=== PATIENT | female | born 2000 | race Caucasian/White ===

== ENCOUNTER → 2022-01-07 | Outpatient (CLI) | payer BC ==
--- NOTE | 2022-01-07 13:43 | Diagnostic Imaging Report ---
INDICATION: Bilateral breast pain and fullness. COMPARISON: No prior mammograms are available for comparison. 2-D and 3-D bilateral diagnostic mammography was performed with CAD. Scattered fibroglandular densities are noted bilaterally. No mass or malignant-appearing microcalcifications are seen. Axillae are unremarkable. IMPRESSION: BI-RADS Category 1 No mammographic features suspicious for malignancy are identified. ACR BI-RADS Category 1: Negative. Result letter will be mailed to the patient. Note: At least 10% of breast cancer is not imaged by mammography. Dictated by: Dictated on workstation # [id number]
== END ==
LOC: RAD 13:15
PROVIDERS: ATTEND Nurse Practitioner Family
DX: N64.4 Mastodynia (principal)
CPT/HCPCS: 77066; G0279; 77062

== ENCOUNTER → 2022-01-27 | Outpatient (CLI) | payer BC ==
[~2022-01-27] MED LIST: ONDA4TAB11 PO; TMSL.4C PO
--- NOTE | 2022-01-27 17:11 | Diagnostic Imaging Report ---
INDICATION: Upper back pain after injury. AP and lateral views of thoracic spine are obtained. Thoracic spinal curvature and alignment are unremarkable. Vertebral body heights and disc spaces are maintained. There is no lytic or sclerotic lesion. IMPRESSION: No acute abnormality. Dictated by: Dictated on workstation # [id number]
== END ==
LOC: RAD 16:13
PROVIDERS: ATTEND Family Medicine
DX: Q79.60 Ehlers-Danlos syndrome, unspecified (principal)
CPT/HCPCS: 72070

== ENCOUNTER 2022-01-30 09:43 | Emergency (ER) | payer BC ==
[~2022-01-30] VITALS: Ht 165 cm; Wt 113.3 kg
[2022-01-30] MEDS ORDERED: KETOROLAC 30 MG/ML VIAL IVP ONE (10:00)
[2022-01-30] MEDS ORDERED: ONDANSETRON 4 MG/2 ML (SDV) Z0FRAN IVP ONE (10:00)
[2022-01-30] MEDS ORDERED: fentaNYL INJ 100 MCG/2 ML AMP IVP ONE (10:00)
[2022-01-30] MEDS ORDERED: NS IV 1000 ML 1,000 ML IV SCH (10:00)
--- NOTE | 2022-01-30 10:01 | ED Abdominal Pain ---
General Chief Complaint: Back Problems Stated Complaint: BACK PAIN, L SIDE BURNING Nursing Triage Note: pt presents to ed via pov from home with complaints of mid/lower back pain that radiate to her l side after getting her back adjusted at urgent care 2 days ago. pt reports she woke up around 0900 with severe burning sensation on medial l side. Source of Information: Patient Exam Limitations: No Limitations History of Present Illness Date Seen by Provider: Jan 30, 2022 Time Seen by Provider: 09:50 Initial Comments Patient is a 21-year-old female who presents to the emergency department today with a chief complaint of left lower quadrant and left flank burning pain. 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 She states the pain radiates from her left low back around her left abdomen and down into her left anterior thigh and a little bit into her groin. She has never had any pain like this before. Nothing makes it any better or any worse. She denies fevers or chills. She is nauseous. No dysuria, urgency or frequency. She is on day 3 or 4 of her menstrual cycle. No abnormal vaginal discharge. No rashes reported. No diarrhea, black or bloody stools. 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 She states at the time of onset of her pain both of her arms went numb. She went to urgent care [facility] and was evaluated by Dr. Howard. She reports that he was not familiar with the condition of Dino-Danlos syndrome. She felt like he was not concerned that her back pain was related to her syndrome. She states that he examined her put her into various uncomfortable positions and then he pushed on her back. She states they both heard a loud pop and her pain and numbness improved. She has never had a dislocation in her back before that she is aware of. She is quite concerned that the mid back pain and this left lower abdominal pain are related. All other review of systems reviewed and negative except as stated Timing/Duration: 1-3 Hours Severity/Quality: Severe, Aching, Burning Location: LLQ Radiation: Groin, Other (left thigh) Modifying Factors: Worsens With Movement Associated Symptoms: Nausea/Vomiting Allergies and Home Medications Allergies Coded Allergies: Penicillins (Verified Allergy, Unknown, 01/30/22) Patient Home Medication List Home Medication List Reviewed: Yes Ondansetron (Ondansetron Odt) 4 Mg Tab.rapdis, 4 MG PO Q8H PRN for nausea Prescribed by: ANNA RODRIGUEZ on 01/30/22 1115 Tamsulosin HCl (Flomax) 0.4 Mg Cap, 0.4 MG PO HS Prescribed by: ANNA RODRIGUEZ on 01/30/22 1115 Review of Systems Review of Systems Constitutional: see HPI, diaphoresis EENTM: No Symptoms Reported Respiratory: No Symptoms Reported Cardiovascular: No Symptoms Reported Gastrointestinal: Abdominal Pain, Nausea Genitourinary: No Symptoms Reported Musculoskeletal: back pain Skin: no symptoms reported Psychiatric/Neurological: No Symptoms Reported; Denies Numbness, Denies Paresthesia All Other Systems Reviewed Negative Unless Noted: Yes Past Svqkach-Acfrtm-Litapf Hx Patient Social History Tobacco Use?: No Substance use?: No Alcohol Use?: Yes Alcohol Frequency: Once in a while Pt feels they are or have been: No Physical Exam Vital Signs Vital Signs - First Documented 01/30/22 09:51 Temp 36.2 Pulse 127 Resp 26 B/P (MAP) 151/108 (122) Pulse Ox 96 Capillary Refill : Less Than 3 Seconds Height/Weight/BMI Height: '" Weight: lbs. oz. kg; 41.00 BMI Method: General Appearance: WD/WN, moderate distress HEENT: PERRL/EOMI Neck: normal inspection Respiratory: lungs clear, normal breath sounds, no respiratory distress, no accessory muscle use Cardiovascular: regular rate, rhythm, tachycardia (120) Gastrointestinal: normal bowel sounds, soft, tenderness (left flank) Extremities: normal range of motion, normal inspection, normal capillary refill Back: normal inspection, other (neg SLR bilaterally; no LE weakness, paresthesia; normal distal pulses) Neurologic/Psychiatric: no motor/sensory deficits, alert, normal mood/affect, oriented x 3 Skin: normal color, warm/dry, other (no rashes to the left flank) Progress/Results/Core Measures Results/Orders Lab Results Laboratory Tests Test 01/30/22 10:23 01/30/22 10:40 Range/Units White Blood Count 9.8 4.3-11.0 10^3/uL Red Blood Count 4.80 3.80-5.11 10^6/uL Hemoglobin 12.5 11.5-16.0 g/dL Hematocrit 38 35-52 % Mean Corpuscular Volume 80 80-99 fL Mean Corpuscular Hemoglobin 26 25-34 pg Mean Corpuscular Hemoglobin Concent 33 32-36 g/dL Red Cell Distribution Width 13.3 10.0-14.5 % Platelet Count 318 130-400 10^3/uL Mean Platelet Volume 11.8 9.0-12.2 fL Immature Granulocyte % (Auto) 0 % Neutrophils (%) (Auto) 66 42-75 % Lymphocytes (%) (Auto) 25 12-44 % Monocytes (%) (Auto) 7 0-12 % Eosinophils (%) (Auto) 1 0-10 % Basophils (%) (Auto) 0 0-10 % Neutrophils # (Auto) 6.4 1.8-7.8 10^3/uL Lymphocytes # (Auto) 2.5 1.0-4.0 10^3/uL Monocytes # (Auto) 0.7 0.0-1.0 10^3/uL Eosinophils # (Auto) 0.1 0.0-0.3 10^3/uL Basophils # (Auto) 0.0 0.0-0.1 10^3/uL Immature Granulocyte # (Auto) 0.0 0.0-0.1 10^3/uL Sodium Level 140 135-145 MMOL/L Potassium Level 3.3 L 3.6-5.0 MMOL/L Chloride Level 107 98-107 MMOL/L Carbon Dioxide Level 22 21-32 MMOL/L Anion Gap 11 5-14 MMOL/L Blood Urea Nitrogen 10 7-18 MG/DL Creatinine 0.75 0.60-1.30 MG/DL Estimat Glomerular Filtration Rate 117 BUN/Creatinine Ratio 13 Glucose Level 98 70-105 MG/DL Calcium Level 9.1 8.5-10.1 MG/DL Urine Color YELLOW Urine Clarity CLOUDY Urine pH 6.0 5-9 Urine Specific [place] 1.010 L 1.016-1.022 Urine Protein NEGATIVE NEGATIVE Urine Glucose (UA) NEGATIVE NEGATIVE Urine Ketones NEGATIVE NEGATIVE Urine Nitrite NEGATIVE NEGATIVE Urine Bilirubin NEGATIVE NEGATIVE Urine Urobilinogen 0.2 < = 1.0 MG/DL Urine Leukocyte Esterase NEGATIVE NEGATIVE Urine RBC (Auto) 3+ H NEGATIVE Urine RBC 50-100 H /HPF Urine WBC NONE /HPF Urine Squamous Epithelial Cells 0-2 /HPF Urine Crystals NONE /LPF Urine Bacteria NEGATIVE /HPF Urine Casts NONE /LPF Urine Mucus NEGATIVE /LPF Urine Culture Indicated NO My Orders Orders - ANNA RODRIGUEZ MD Ed Iv/Invasive Line Start (01/30/22 09:58) Cbc With Automated Diff (01/30/22 09:58) Basic Metabolic Panel (01/30/22 09:58) Ua Culture If Indicated (01/30/22 09:58) Urine Bedside (01/30/22 09:58) Ketorolac Injection (Toradol Injection) (01/30/22 10:00) Ondansetron Injection (Zofran Injectio (01/30/22 10:00) Ns Iv 1000 Ml (Sodium Chloride 0.9%) (01/30/22 10:00) Fentanyl Inj (Sublimaze Injection) (01/30/22 10:00) Abdomen/Kub 1view (01/30/22 09:58) Ct Abd/Pelvis Wo(Kidney Stone) (01/30/22 09:58) Medications Given in ED Current Medications Medications Dose Ordered Sig/Mc Route Start Time Stop Time Status Last Admin Dose Admin Fentanyl Citrate 50 mcg ONCE ONCE IVP 01/30/22 10:00 01/30/22 10:02 DC 01/30/22 10:16 50 MCG Ketorolac Tromethamine 15 mg ONCE ONCE IVP 01/30/22 10:00 01/30/22 10:02 DC 01/30/22 10:18 15 MG Ondansetron HCl 4 mg ONCE ONCE IVP 01/30/22 10:00 01/30/22 10:02 DC 01/30/22 10:18 4 MG Vital Signs/I&O 01/30/22 09:51 Temp 36.2 Pulse 127 Resp 26 B/P (MAP) 151/108 (122) Pulse Ox 96 Blood Pressure Mean: 122 Progress Progress Note : Time: 11:11 Progress Note Patient reassessed, feels much better sitting comfortably in the bed. Vital signs are stable. I communicated with her that she has a 2 mm left UVJ stone. We discussed follow-up/return precautions. She is comfortable with the plan of care. We will send her home with Flomax and some nausea medicine. She has some hydrocodone that she can take over the next couple of days as needed. Encouraged her to strain her urine until she passes the stone. Osseous structures that were visualized on the CT are reported as normal. This is reassuring considering her Dino-Danlos and her concern for earlier injury at urgent care. Patient has no clinical or objective findings to warrant further studies from the emergency department. She certainly does not need admission at this time. All questions are sought and answered. Patient is stable and improved at discharge. Diagnostic Imaging Diagonstic Imaging: CT Comments NAME: ZENA GRADY [facility] REC#: [id number] PT STATUS: REG ER : 2000 PHYSICIAN: ANNA RODRIGUEZ MD ADMIT DATE: 01/30/22/ER Draft Date of Exam:01/30/22 CT ABD/PELVIS WO(KIDNEY STONE) PROCEDURE: CT urinary tract, rule out kidney stone. TECHNIQUE: Multiple contiguous axial images were obtained through the abdomen and pelvis without the use of intravenous contrast. Auto Exposure Controls were utilized during the CT exam to meet ALARA standards for radiation dose reduction. INDICATION: Flank pain. FINDINGS: The heart size is normal. The lung bases are clear. The liver is normal in size and without focal lesions. Gallbladder is unremarkable. Spleen is unremarkable. Pancreas and adrenal glands are unremarkable. There are tiny nonobstructing bilateral renal calculi. There is mild left hydronephrosis and hydroureter. There appears to be a 2 mm stone near the left UVJ. The aorta is nonaneurysmal. The bowel gas pattern is nonspecific. There is no free air. There is no ascites. There are no focal inflammatory changes. Bladder is normal. There is no pelvic mass, adenopathy or free fluid. The osseous structures are unremarkable. IMPRESSION: Mild left hydronephrosis and hydroureter secondary to a 2 mm stone near the left UVJ. There are several other additional smaller nonobstructing bilateral renal calculi. Dictated on workstation # [id number] Dict: 01/30/22 1050 Trans: 01/30/22 1100 [facility] [id number] Interpreted by: YUE NUNEZ MD Electronically signed by: Diagonstic Imaging: Xray Comments [facility] [place] NAME: ZENA GRADY [facility] REC#: [id number] PT STATUS: REG ER : 2000 PHYSICIAN: ANNA RODRIGUEZ MD ADMIT DATE: 01/30/22/ER Draft Date of Exam:01/30/22 ABDOMEN/KUB 1VIEW INDICATION: Flank pain. FINDINGS: The lung bases are clear. The bowel gas pattern is nonspecific. There is no free air. There are no abnormal abdominal calcifications. IMPRESSION: Nonspecific bowel gas pattern. Dictated on workstation # [id number] Dict: 01/30/22 1052 Trans: 01/30/22 1110 [facility] [id number] Interpreted by: YUE NUNEZ MD Electronically signed by: Departure Impression Primary Impression: Calculus of distal left ureter Disposition: 01 HOME, SELF-CARE Condition: Improved Departure-Patient Inst. Decision time for Depature: 11:12 Referrals: JEANA ZHU MD (PCP/Family) Primary Care Physician Patient Instructions: Kidney Stone, Adult ED Add. Discharge Instructions: Drink lots of fluids over the next several days to stay well-hydrated. I am putting you on Flomax which you will take nightly for the next week. This helps to increase urinary flow. Nausea medicine, Zofran every 8 hours as needed for upset stomach. You can take your hydrocodone as needed for more severe pain at home otherwise ibuprofen 600 mg every 6 hours with food as needed for abdominal discomfort. You do have multiple other small nonobstructing stones within the kidneys. These may never pass but if you experience a return of pain in the future similar to today it may mean that the stones are starting to move out of the kidney. Follow-up with Dr. Zhu for further management/referral to urology. Return to the emergency department for any worsening pain especially with fever over 101, vomiting that is not controlled by medications or any other emergent, concerning symptoms. Scripts Ondansetron (Ondansetron Odt) 4 Mg Tab.rapdis 4 MG PO Q8H PRN for nausea, #15 TAB Prov: ANNA RODRIGUEZ MD 01/30/22 Tamsulosin HCl (Flomax) 0.4 Mg Cap 0.4 MG PO HS, #7 CAP Prov: ANNA RODRIGUEZ MD 01/30/22 Work/School Note: Work Release Form Date Seen in the Emergency Department: Jan 30, 2022 Return to Work: Jan 31, 2022 Copy Copies To 1: JEANA ZHU MD, KATHRYN M MD Jan 30, 2022 10:01
[2022-01-30 10:28] LABS: BASOPHILS % (AUTO) 0 % (0-10); EOSINOPHILS # (AUTO) 0.1 10^3/uL (0.0-0.3); EOSINOPHILS % (AUTO) 1 % (0-10); HEMATOCRIT 38 % (35-52); HEMOGLOBIN 12.5 g/dL (11.5-16.0); LYMPHOCYTES # (AUTO) 2.5 10^3/uL (1.0-4.0); LYMPHOCYTES % (AUTO) 25 % (12-44); MEAN CORPUSCULAR HEMOGLOBIN 26 pg (25-34); MEAN CORPUSCULAR HGB CONC 33 g/dL (32-36); MEAN CORPUSCULAR VOLUME 80 fL (80-99); MEAN PLATELET VOLUME 11.8 fL (9.0-12.2); MONOCYTES # (AUTO) 0.7 10^3/uL (0.0-1.0); MONOCYTES % (AUTO) 7 % (0-12); NEUTROPHILS # (AUTO) 6.4 10^3/uL (1.8-7.8); NEUTROPHILS % (AUTO) 66 % (42-75); PLATELET COUNT 318 10^3/uL (130-400); WHITE BLOOD COUNT 9.8 10^3/uL (4.3-11.0)
[2022-01-30 10:39] LABS: POTASSIUM 3.3 MMOL/L (3.6-5.0)
[2022-01-30 10:40] LABS: CALCIUM 9.1 MG/DL (8.5-10.1)
[2022-01-30 10:44] LABS: CREATININE SERUM 0.75 MG/DL (0.60-1.30)
[2022-01-30 10:48] LABS: BILIRUBIN,URINE NEGATIVE (NEGATIVE); CLARITY,URINE CLOUDY; COLOR,URINE YELLOW; GLUCOSE, URINE (UA) NEGATIVE (NEGATIVE); KETONES,URINE NEGATIVE (NEGATIVE); LEUKOCYTE ESTERASE ,URINE NEGATIVE (NEGATIVE); NITRITE,URINE NEGATIVE (NEGATIVE); PROTEIN,URINE NEGATIVE (NEGATIVE)
[2022-01-30 10:54] LABS: BACTERIA,URINE NEGATIVE /HPF; RBC,URINE 50-100 /HPF; SQUAMOUS EPITHELIAL CELL,UR 0-2 /HPF
--- NOTE | 2022-01-30 11:02 | Diagnostic Imaging Report ---
PROCEDURE: CT urinary tract, rule out kidney stone. TECHNIQUE: Multiple contiguous axial images were obtained through the abdomen and pelvis without the use of intravenous contrast. Auto Exposure Controls were utilized during the CT exam to meet ALARA standards for radiation dose reduction. INDICATION: Flank pain. FINDINGS: The heart size is normal. The lung bases are clear. The liver is normal in size and without focal lesions. Gallbladder is unremarkable. Spleen is unremarkable. Pancreas and adrenal glands are unremarkable. There are tiny nonobstructing bilateral renal calculi. There is mild left hydronephrosis and hydroureter. There appears to be a 2 mm stone near the left UVJ. The aorta is nonaneurysmal. The bowel gas pattern is nonspecific. There is no free air. There is no ascites. There are no focal inflammatory changes. Bladder is normal. There is no pelvic mass, adenopathy or free fluid. The osseous structures are unremarkable. IMPRESSION: Mild left hydronephrosis and hydroureter secondary to a 2 mm stone near the left UVJ. There are several other additional smaller nonobstructing bilateral renal calculi. Dictated by: Dictated on workstation # [id number]
--- NOTE | 2022-01-30 11:11 | Diagnostic Imaging Report ---
INDICATION: Flank pain. FINDINGS: The lung bases are clear. The bowel gas pattern is nonspecific. There is no free air. There are no abnormal abdominal calcifications. IMPRESSION: Nonspecific bowel gas pattern. Dictated by: Dictated on workstation # [id number]
[2022-01-30] MEDS ORDERED: TMSL.4C PO (11:15)
[2022-01-30] MEDS ORDERED: ONDA4TAB11 PO (11:15)
[2022-01-30 11:46] VITALS: BP 155/68
== END 2022-01-30 11:46 | disposition home or self-care (01) ==
LOC: EDUNIT# 09:43 → ER 09:45
DX: N13.2 Hydronephrosis with renal and ureteral calculous obstruction (principal)
CPT/HCPCS: 36415; 74018; 74176; 80048; 81000; 84703; 85025